=== PATIENT | female | born 1950 | race Caucasian/White ===

== ENCOUNTER 2019-05-24 11:25 | Inpatient (IN) | payer OTHER ==
[2019-05-24 11:50] LABS: ADD MAN DIFF? NO
[2019-05-24 11:53] LABS: WHITE BLOOD COUNT 11.2 10^3/ul (4.8-10.8)
[2019-05-24 11:53] LABS: BASOPHIL # 0.1 10^3/ul (0.0-0.1); BASOPHILS % 0.4 % (0.0-2.0); EOSINOPHILS # 0.3 10^3/ul (0.0-0.5); EOSINOPHILS % 2.8 % (0.0-7.0); HEMATOCRIT 44.8 % (37.0-47.0); HEMOGLOBIN 14.4 g/dl (12.0-16.0); LYMPHOCYTES # 2.4 10^3/ul (0.8-2.9); LYMPHOCYTES % 20.9 % (15.0-51.0); MEAN CORPUSCULAR HEMOGLOBIN 28.6 pg (29.0-33.0); MEAN CORPUSCULAR HGB CONC 32.1 g/dl (32.0-37.0); MEAN CORPUSCULAR VOLUME 88.9 fl (82.0-101.0); MEAN PLATELET VOLUME 10.6 fl (7.4-10.4); MONOCYTE # 0.9 10^3/ul (0.3-0.9); NEUTROPHIL # 7.6 10^3/ul (1.6-7.5); NEUTROPHILS % 67.5 % (39.0-77.0); PLATELET COUNT 471 10^3/UL (140-415); RED BLOOD COUNT 5.04 10^6/ul (4.20-5.40); RED CELL DISTRIBUTION WIDTH 13.9 % (11.5-14.5)
[2019-05-24 12:10] LABS: ANION GAP 8 (5-13); BLOOD UREA NITROGEN 30 mg/dl (7-20); CARBON DIOXIDE 21 mmol/L (21-31); CHLORIDE 111 mmol/L (97-110); CHOL/HDL RATIO 7.5 RATIO; CHOLESTEROL 279 mg/dl (100-200); CREATINE KINASE 47 IU/L (23-200); CREATININE 0.73 mg/dl (0.44-1.00); Estimated GFR > 60 mL/min (>60); GLUCOSE 129 mg/dl (70-220); HDL CHOLESTEROL 37 mg/dl (35-98); LDL CHOLESTEROL,CALCULATED 205 mg/dl; POTASSIUM 4.6 mmol/L (3.5-5.1); SODIUM 140 mmol/L (135-144); TRIGLYCERIDES 184 mg/dl (0-149)
[2019-05-24 12:15] LABS: INR 0.93; PROTIME 12.6 Sec (11.9-14.9)
[2019-05-24 12:16] LABS: PARTIAL THROMBOPLASTIN TIME 25.1 Sec (23.0-35.0)
[2019-05-24 12:22] LABS: CK INDEX 0.7; CK-MB 0.33 ng/ml (0.0-2.4); TROPONIN-I < 0.012 ng/ml (0.000-0.120)
[2019-05-24 12:34] LABS: ADD UMIC NO; UR ASCORBIC ACID NEGATIVE (NEGATIVE); UR BACTERIA FEW /HPF (NONE SEEN); UR BILIRUBIN (Dip) NEGATIVE (NEGATIVE); UR BLOOD (Dip) NEGATIVE (NEGATIVE); UR CALCIUM OXALATE CRYSTAL MANY /HPF (NONE SEEN); UR CLARITY SLIGHTLY CLOUDY (CLEAR); UR COLOR YELLOW (YELLOW); UR GLUCOSE (Dip) NEGATIVE (NEGATIVE); UR KETONES (Dip) NEGATIVE (NEGATIVE); UR LEUKOCYTE ESTERASE (Dip) NEGATIVE Leu/ul (NEGATIVE); UR MUCUS FEW /HPF (NONE SEEN); UR NITRITE (Dip) NEGATIVE (NEGATIVE); UR RBC 15 /HPF (0-5); UR SQUAMOUS EPITHELIAL CELL FEW /HPF (FEW); UR TOTAL PROTEIN (Dip) NEGATIVE (NEGATIVE); UR UROBILINOGEN (Dip) NEGATIVE (NEGATIVE); UR WBC 2 /HPF (0-5)
[2019-05-24] MEDS: ASPIRIN 325 MG TAB PO (13:21)
[2019-05-24] MEDS ORDERED: NACL 0.9% 3 ML SYG IV (14:30)
[2019-05-24] MEDS ORDERED: ONDANSETRON 4 MG INJ IV ×2 (14:30)
[2019-05-24] MEDS ORDERED: ACETAMINOPHEN 325 MG TAB PO ×2 (14:30)
[2019-05-24 15:29] LABS: CHOL/HDL RATIO 7.2 RATIO; HDL CHOLESTEROL 33 mg/dl (35-98); LDL CHOLESTEROL,CALCULATED 172 mg/dl; TRIGLYCERIDES 166 mg/dl (0-149)
[2019-05-24 15:29] LABS: CHOLESTEROL 238 mg/dl (100-200)
[2019-05-24] MEDS ORDERED: LABETALOL HCL 20MG INJ IV (15:30)
[2019-05-24 15:36] LABS: HEMOGLOBIN A1C 5.7 % (0-5.9)
[2019-05-24] MEDS: SOD CHLORIDE 0.9% 1,000 ML IV (17:05)
[2019-05-24] MEDS: ATORVASTATIN 80 MG TAB PO (20:08)
[2019-05-25 05:49] LABS: ADD MAN DIFF? NO
[2019-05-25 05:54] LABS: WHITE BLOOD COUNT 11.5 10^3/ul (4.8-10.8)
[2019-05-25 05:55] LABS: BASOPHIL # 0.1 10^3/ul (0.0-0.1); BASOPHILS % 0.5 % (0.0-2.0); EOSINOPHILS # 0.7 10^3/ul (0.0-0.5); EOSINOPHILS % 6.4 % (0.0-7.0); HEMOGLOBIN 13.1 g/dl (12.0-16.0); LYMPHOCYTES # 3.7 10^3/ul (0.8-2.9); LYMPHOCYTES % 32.6 % (15.0-51.0); MEAN CORPUSCULAR HEMOGLOBIN 28.5 pg (29.0-33.0); MEAN CORPUSCULAR HGB CONC 31.2 g/dl (32.0-37.0); MEAN CORPUSCULAR VOLUME 91.3 fl (82.0-101.0); MEAN PLATELET VOLUME 10.7 fl (7.4-10.4); MONOCYTE # 1.1 10^3/ul (0.3-0.9); MONOCYTES % 9.7 % (0.0-11.0); NEUTROPHIL # 5.8 10^3/ul (1.6-7.5); NEUTROPHILS % 50.3 % (39.0-77.0); PLATELET COUNT 413 10^3/UL (140-415); RED CELL DISTRIBUTION WIDTH 13.7 % (11.5-14.5)
[2019-05-25 06:34] LABS: ALANINE AMINOTRANSFERASE 24 IU/L (13-69); ALBUMIN 3.3 g/dl (3.3-4.9); ALBUMIN/GLOBULIN RATIO 1.13; ALKALINE PHOSPHATASE 108 IU/L (42-121); ANION GAP 6 (5-13); ASPARTATE AMINO TRANSFERASE 22 IU/L (15-46); BILIRUBIN,INDIRECT 0.4 mg/dl (0-1.1); BILIRUBIN,TOTAL 0.4 mg/dl (0.2-1.3); BLOOD UREA NITROGEN 19 mg/dl (7-20); CALCIUM 9.1 mg/dl (8.4-10.2); CARBON DIOXIDE 22 mmol/L (21-31); CHLORIDE 110 mmol/L (97-110); CREATININE 0.61 mg/dl (0.44-1.00); Estimated GFR > 60 mL/min (>60); GLUCOSE 98 mg/dl (70-220); POTASSIUM 4.4 mmol/L (3.5-5.1); SODIUM 138 mmol/L (135-144); TOTAL PROTEIN 6.2 g/dl (6.1-8.1)
[2019-05-25] MEDS: ASPIRIN 81 MG TAB PO (08:42)
[2019-05-25] MEDS: CITALOPRAM 20 MG TAB PO (08:43)
[2019-05-25] MEDS: ATORVASTATIN 80 MG TAB PO (20:11)
[2019-05-26 06:47] LABS: ADD MAN DIFF? NO
[2019-05-26 06:52] LABS: BASOPHIL # 0.1 10^3/ul (0.0-0.1); BASOPHILS % 0.5 % (0.0-2.0); EOSINOPHILS # 0.7 10^3/ul (0.0-0.5); EOSINOPHILS % 6.5 % (0.0-7.0); HEMATOCRIT 45.5 % (37.0-47.0); HEMOGLOBIN 14.2 g/dl (12.0-16.0); LYMPHOCYTES # 3.3 10^3/ul (0.8-2.9); LYMPHOCYTES % 30.3 % (15.0-51.0); MEAN CORPUSCULAR HGB CONC 31.2 g/dl (32.0-37.0); MEAN CORPUSCULAR VOLUME 89.6 fl (82.0-101.0); MEAN PLATELET VOLUME 10.6 fl (7.4-10.4); MONOCYTES % 8.7 % (0.0-11.0); NEUTROPHIL # 5.9 10^3/ul (1.6-7.5); NEUTROPHILS % 53.6 % (39.0-77.0); PLATELET COUNT 475 10^3/UL (140-415); RED BLOOD COUNT 5.08 10^6/ul (4.20-5.40); RED CELL DISTRIBUTION WIDTH 13.6 % (11.5-14.5)
[2019-05-26 07:09] LABS: ANION GAP 8 (5-13); BLOOD UREA NITROGEN 16 mg/dl (7-20); CALCIUM 9.2 mg/dl (8.4-10.2); CARBON DIOXIDE 22 mmol/L (21-31); CHLORIDE 110 mmol/L (97-110); CREATININE 0.69 mg/dl (0.44-1.00); Estimated GFR > 60 mL/min (>60); GLUCOSE 99 mg/dl (70-220); MAGNESIUM 2.1 mg/dl (1.7-2.5); PHOSPHORUS 4.5 mg/dl (2.5-4.9); POTASSIUM 4.6 mmol/L (3.5-5.1); SODIUM 140 mmol/L (135-144)
[2019-05-26] MEDS: ASPIRIN 81 MG TAB PO (08:17)
[2019-05-26] MEDS: CITALOPRAM 20 MG TAB PO (08:18)
[2019-05-26 10:08] LABS: ERYTHROCYTE SEDIMENTATION RATE 17 mm/Hr (0-30)
[2019-05-26 16:44] LABS: RAPID PLASMA REAGIN NONREACTIVE (NR)
== END 2019-05-26 15:15 | disposition home or self-care (01) | DRG 69 ==
LOC: E/R 11:25 → TEL 14:08
PROVIDERS: Internal Medicine
DX: G45.9 Transient cerebral ischemic attack, unspecified (principal); R47.81 Slurred speech; R20.0 Anesthesia of skin; E78.5 Hyperlipidemia, unspecified; F39 Unspecified mood [affective] disorder; F17.200 Nicotine dependence, unspecified, uncomplicated; Z79.82 Long term (current) use of aspirin; Z91.19 Patient's noncompliance with other medical treatment and regimen; Z85.3 Personal history of malignant neoplasm of breast
CPT/HCPCS: 70450; 70549; 70551; 71045; 80048; 80053; 80061; 81001; 81003; 82550; 82553; 83036; 83735; 84100; 84443; 84484; 85025; 85610; 85651; 85730; 86592; 93005; 93306; 93880; 99285-25; G0378